=== PATIENT | male | born 1950 | race Caucasian/White ===

== ENCOUNTER 2021-02-10 11:53 | Inpatient (IN) ==
[2021-02-10] MEDS ORDERED: SODIUM CHLORIDE 0.9% 500 ML IV STA (14:55)
--- NOTE | 2021-02-10 15:03 | Emergency Department Note ---
Impression & Plan Tick-borne disease, Abnormal LFTs, Thrombocytopenia, MARIANA (acute kidney injury), Hyponatremia ED Provider Note NAME: CASSIE ANDRADE AGE: 70 SEX: M : 1950 ARRIVES VIA: Walk-In INFORMANT: Patient, ED PROVIDER(S): Venkat Davey DO CHIEF COMPLAINT: Abdominal pain HPI: The patient is a 70-year-old male who presented to the emergency department for an evaluation of abdominal pain. The patient describes lower abdominal pain which is associated with fever. The patient noticed the symptoms since last week. His significant other was also sick at the same time however the patient's significant other symptoms have improved since that time. The patient called the [place] where he is normally seen and was sent to the emergency department for possible food poisoning. He has had no rectal bleeding. He notices no black stool. He denies having any chest pain or cough. He denies having any headache or neck stiffness. He has noticed fever and chills. He has been taking Tylenol for his symptoms with good relief of his fever. The patient notices mild abdominal pain and nausea. ROS: See above HPI for pertinent positives & negatives. A total of 10 systems reviewed and were otherwise negative. PAST MEDICAL HISTORY: See Below PAST SURGICAL HISTORY: See Below FAMILY HISTORY: See Below SOCIAL HISTORY: See Below HOME MEDICATIONS: See Below ALLERGIES: See Below VITALS: See Below PHYSICAL EXAMINATION: GENERAL: Patient is awake alert in no acute distress patient is resting comfortably and showing no signs of anxiety EYES: The conjunctivae are clear. The pupils are round and reactive. EARS, NOSE, MOUTH AND THROAT: The nose is without any evidence of any deformity. NECK: The neck is nontender and supple. RESPIRATORY: Normal respiratory effort is noted there is no evidence of wheezing rhonchi or rales CARDIOVASCULAR: Regular rate and rhythm noted there no murmurs rubs or gallops normal S1 normal S2. GASTROINTESTINAL: The abdomen is soft and mildly distended. There is lower abdominal tenderness to palpation but no guarding rigidity. MUSCULOSKELETAL/EXTREMITIES: There is no evidence of gross deformity full range of motion is noted in the hips and shoulders. SKIN: There is no obvious evidence of any rash. There are no petechiae, pallor or cyanosis noted. NEUROLOGIC: Patient is awake alert and oriented x3 strength is symmetric patellar reflexes are 2+ bilaterally MEDICAL DECISION MAKING: The patient is a 70-year-old male who presented to the emergency department for an evaluation of abdominal pain and fever. The patient was sent by his primary care physician for an evaluation. The patient did not have a fever in the emergency department but he was found to have significant laboratory abnormalities including abnormal sodium potassium and an elevation in his creatinine. He also had elevation in his liver function studies as well as thrombocytopenia. [place] is possible this represents a tickborne illness. I discussed the patient's laboratory and radiographic studies with him. I discussed the patient's condition with the on-call [facility] hospitalist group. They have agreed to evaluate the patient in the emergency department for further management and disposition. The patient was treated with IV fluids and IV antibiotics. Triage Nursing notes reviewed. Prior medical records reviewed Vital Signs: reviewed and remarkable for elevated blood pressure. Differential diagnosis: Viral syndrome, otitis, pharyngitis, pneumonia, influenza, meningitis, urinary tract infection, sepsis, bacteremia, as well as other pathologies. ER treatment provided: See below Diagnostics interpreted by me: ECG: EKG was obtained in the emergency department. My interpretation is sinus rhythm at 96 bpm. PACs were noted. Nonspecific interventricular conduction del ay was appreciated. No previous tracing was available. Cardiac Monitoring: An order was placed for continuous cardiac monitoring. The monitor shows a rate of 80 bpm with sinus rhythm. Laboratory studies: As stated above and show below. Imaging studies: See below Consultation(s): Dr. Red was notified about the patient. They will evaluate the patient in the emergency department for further management and disposition. Past Med/Surg History Medical History History of gout Social History Smoking Status: Former smoker Tobacco Type: Cigarettes Second Hand Exposure: No; Do You Dip or Chew Tobacco: No; Tobacco Cessation Education Requested by Patient: No Hx Alcohol Use: Yes Alcohol type: beer Hx Substance Use: No Preferred Language: Italian Communication Ability: Effective Spray Maker Required: No Beliefs That Will Affect Care: None Current Living Situation: Spouse Other Information That Helps Us Care for You: No Feels Safe at Home: Yes Safety Concerns: Feels Safe At This Time Assistive Devices: None Allergies Allergies Allergy/AdvReac Type Severity Reaction Status Date / Time No Known Allergies Allergy Unverified 02/10/21 15:52 Home Meds Home Medications Medication Instructions Recorded Confirmed [id number] 1 tab PO QAM 02/10/21 02/10/21 [Multivitamin 50 Plus] sodium chloride [[place] Nasal Mist] 1 spray INTRANASAL HS 02/10/21 02/10/21 Results & Data (ED) Vital Signs Vital Signs - 24 hr 02/10/21 16:01 02/10/21 16:31 02/10/21 17:01 Temperature Temperature Source Pulse Rate 91 H 96 H 93 H Pulse Rate from SpO2 Sensor 90 89 84 Respiratory Rate 20 19 18 Blood Pressure 161/76 H 158/73 H 166/73 H Blood Pressure Mean 104 101 104 Pulse Oximetry 97 97 99 Oxygen Delivery Method Room Air Room Air Room Air 02/10/21 17:31 02/10/21 18:01 02/10/21 18:02 Temperature Temperature Source Pulse Rate 101 H 98 H 98 H Pulse Rate from SpO2 Sensor Respiratory Rate 22 16 17 Blood Pressure 176/78 H 168/96 H Blood Pressure Mean 110 120 Pulse Oximetry Oxygen Delivery Method 02/10/21 18:30 02/10/21 18:31 02/10/21 19:00 Temperature Temperature Source Pulse Rate 99 H 104 H Pulse Rate from SpO2 Sensor Respiratory Rate 14 14 20 Blood Pressure 141/67 H Blood Pressure Mean 91 Pulse Oximetry Oxygen Delivery Method 02/10/21 19:01 02/10/21 19:31 02/10/21 20:01 Temperature Temperature Source Pulse Rate 99 H 104 H Pulse Rate from SpO2 Sensor Respiratory Rate 20 15 24 Blood Pressure 159/67 H 151/64 H 143/85 H Blood Pressure Mean 97 93 104 Pulse Oximetry Oxygen Delivery Method 02/10/21 20:03 Temperature 37.3 C Temperature Source Oral Pulse Rate Pulse Rate from SpO2 Sensor Respiratory Rate Blood Pressure Blood Pressure Mean Pulse Oximetry Oxygen Delivery Method Home Medications Current Medication List: was personally reviewed by me Laboratory Data Attestation: I reviewed the patient's lab results. Result diagrams: 02/11/21 08:58 02/11/21 08:58 Lab Results 02/10/21 02/10/21 02/10/21 Range/Units 15:05 15:05 15:05 WBC 5.31 (4.8-10.8) K/uL RBC 4.38 L (4.7-6.1) M/uL Hgb 14.2 (14.0-18.0) g/dL Hct 39.6 L (42-52) % MCV 90.4 (80-100) fL MCH 32.4 (25-34) pg MCHC 35.9 (32-36) g/dL RDW Std Deviation 43.9 (36.4-46.3) fL RDW Coeff of Nallely 13.1 (11.5-14.5) % Plt Count 66 L (130-400) K/uL MPV 11.8 H (7.4-10.4) fL Immature Gran % (Auto) 0.4 % Neut % (Auto) 70.9 % Lymph % (Auto) 23.4 % Vance % (Auto) 3.2 % Eos % (Auto) 0.2 % Baso % (Auto) 1.9 % Neut # (Auto) 3.77 (1.4-6.5) K/uL Lymph # (Auto) 1.24 (1.2-3.4) K/uL Vance # (Auto) 0.17 (0.11-0.59) K/uL Eos # (Auto) 0.01 (0-0.5) K/uL Baso # (Auto) 0.10 (0-0.2) K/uL Immature Gran # (Auto) 0.02 (0.00-0.02) K/uL Blood Smear Review Platelet Estimate Decreased L (Normal) ESR 41 H (0-20) mm/hr Sodium 130 L (136-145) mmol/L Potassium 3.2 L (3.5-5.1) mmol/L Chloride 96 L (98-107) mmol/L Carbon Dioxide 24 (21-32) mmol/L Anion Gap 9.0 (3-11) BUN 31 H (7-18) mg/dl Creatinine 2.06 H (0.6-1.4) mg/dl Est Cr Clr Drug Dosing 32.4 ml/min Est GFR ( Amer) 36.2 ml/min Est GFR (Non-Af Amer) 31.2 ml/min BUN/Creatinine Ratio 14.9 (10-20) Glucose 110 H (70-99) mg/dl Calcium 9.0 (8.5-10.1) mg/dl Total Bilirubin 2.9 H (0.2-1) mg/dl AST 139 H (15-37) U/L ALT 119 H (12-78) U/L Alkaline Phosphatase 204 H (45-117) U/L Troponin I (0-0.045) ng/ml Total Protein 7.7 (6.4-8.2) gm/dl Albumin 3.2 L (3.4-5.0) gm/dl Globulin 4.5 H (2.5-4.0) gm/dl Albumin/Globulin Ratio 0.7 L (0.9-2) Lipase 569 H (73-393) U/L Procalcitonin (0-0.5) ng/ml Urine Color Urine Appearance (Clear) Urine pH (4.5-7.5) Ur Specific [place] (1.000-1.030) Urine Protein (Negative) Urine Glucose (UA) (Negative) Urine Ketones (Negative) Urine Blood (Negative) Urine Nitrite (Negative) Urine Bilirubin (Negative) Urine Urobilinogen (Negative) Ur Leukocyte Esterase (Negative) Urine WBC (Auto) (0-5) /hpf Urine RBC (Auto) (0-4) /hpf U Hyaline Cast (Auto) (0-5) /lpf U Epithel Cells (Auto) (0-5) /lpf Urine Bacteria (Auto) (Negative) Urine Yeast Anaplasma Smear See Comment Lyme Disease IgG Ab (Negative) Lyme Disease IgM Ab (Negative) COVID-19 Eval Order SARS-CoV-2, RNA, NAAT (NEGATIVE) 02/10/21 02/10/21 02/10/21 Range/Units 15:05 15:05 15:12 WBC (4.8-10.8) K/uL RBC (4.7-6.1) M/uL Hgb (14.0-18.0) g/dL Hct (42-52) % MCV (80-100) fL MCH (25-34) pg MCHC (32-36) g/dL RDW Std Deviation (36.4-46.3) fL RDW Coeff of Nallely (11.5-14.5) % Plt Count (130-400) K/uL MPV (7.4-10.4) fL Immature Gran % (Auto) % Neut % (Auto) % Lymph % (Auto) % Vance % (Auto) % Eos % (Auto) % Baso % (Auto) % Neut # (Auto) (1.4-6.5) K/uL Lymph # (Auto) (1.2-3.4) K/uL Vance # (Auto) (0.11-0.59) K/uL Eos # (Auto) (0-0.5) K/uL Baso # (Auto) (0-0.2) K/uL Immature Gran # (Auto) (0.00-0.02) K/uL Blood Smear Review Platelet Estimate (Normal) ESR (0-20) mm/hr Sodium (136-145) mmol/L Potassium (3.5-5.1) mmol/L Chloride (98-107) mmol/L Carbon Dioxide (21-32) mmol/L Anion Gap (3-11) BUN (7-18) mg/dl Creatinine (0.6-1.4) mg/dl Est Cr Clr Drug Dosing ml/min Est GFR ( Amer) ml/min Est GFR (Non-Af Amer) ml/min BUN/Creatinine Ratio (10-20) Glucose (70-99) mg/dl Calcium (8.5-10.1) mg/dl Total Bilirubin (0.2-1) mg/dl AST (15-37) U/L ALT (12-78) U/L Alkaline Phosphatase (45-117) U/L Troponin I < 0.015 (0-0.045) ng/ml Total Protein (6.4-8.2) gm/dl Albumin (3.4-5.0) gm/dl Globulin (2.5-4.0) gm/dl Albumin/Globulin Ratio (0.9-2) Lipase (73-393) U/L Procalcitonin 4.95 H (0-0.5) ng/ml Urine Color Urine Appearance (Clear) Urine pH (4.5-7.5) Ur Specific [place] (1.000-1.030) Urine Protein (Negative) Urine Glucose (UA) (Negative) Urine Ketones (Negative) Urine Blood (Negative) Urine Nitrite (Negative) Urine Bilirubin (Negative) Urine Urobilinogen (Negative) Ur Leukocyte Esterase (Negative) Urine WBC (Auto) (0-5) /hpf Urine RBC (Auto) (0-4) /hpf U Hyaline Cast (Auto) (0-5) /lpf U Epithel Cells (Auto) (0-5) /lpf Urine Bacteria (Auto) (Negative) Urine Yeast Anaplasma Smear Lyme Disease IgG Ab Negative (Negative) Lyme Disease IgM Ab Positive A (Negative) COVID[facility]19 [facility] SARS-CoV-2, RNA, NAAT (NEGATIVE) 02/10/21 02/10/21 Range/Units 15:12 16:58 WBC (4.8-10.8) K/uL RBC (4.7-6.1) M/uL Hgb (14.0-18.0) g/dL Hct (42-52) % MCV (80-100) fL MCH (25-34) pg MCHC (32-36) g/dL RDW Std Deviation (36.4-46.3) fL RDW Coeff of Nallely (11.5-14.5) % Plt Count (130-400) K/uL MPV (7.4-10.4) fL Immature Gran % (Auto) % Neut % (Auto) % Lymph % (Auto) % Vance % (Auto) % Eos % (Auto) % Baso % (Auto) % Neut # (Auto) (1.4-6.5) K/uL Lymph # (Auto) (1.2-3.4) K/uL Vance # (Auto) (0.11-0.59) K/uL Eos # (Auto) (0-0.5) K/uL Baso # (Auto) (0-0.2) K/uL Immature Gran # (Auto) (0.00-0.02) K/uL Blood Smear Review Platelet Estimate (Normal) ESR (0-20) mm/hr Sodium (136-145) mmol/L Potassium (3.5-5.1) mmol/L Chloride (98-107) mmol/L Carbon Dioxide (21-32) mmol/L Anion Gap (3-11) BUN (7-18) mg/dl Creatinine (0.6-1.4) mg/dl Est Cr Clr Drug Dosing ml/min Est GFR ( Amer) ml/min Est GFR (Non-Af Amer) ml/min BUN/Creatinine Ratio (10-20) Glucose (70-99) mg/dl Calcium (8.5-10.1) mg/dl Total Bilirubin (0.2-1) mg/dl AST (15-37) U/L ALT (12-78) U/L Alkaline Phosphatase (45-117) U/L Troponin I (0-0.045) ng/ml Total Protein (6.4-8.2) gm/dl Albumin (3.4-5.0) gm/dl Globulin (2.5-4.0) gm/dl Albumin/Globulin Ratio (0.9-2) Lipase (73-393) U/L Procalcitonin (0-0.5) ng/ml Urine Color Dark Yellow Urine Appearance Cloudy A (Clear) Urine pH 5.5 (4.5-7.5) Ur Specific [place] 1.018 (1.000-1.030) Urine Protein 2+ H (Negative) Urine Glucose (UA) Negative (Negative) Urine Ketones Trace H (Negative) Urine Blood Trace H (Negative) Urine Nitrite Negative (Negative) Urine Bilirubin 1+ H (Negative) Urine Urobilinogen Negative (Negative) Ur Leukocyte Esterase Trace H (Negative) Urine WBC (Auto) 10-30 H (0-5) /hpf Urine RBC (Auto) 5-10 H (0-4) /hpf U Hyaline Cast (Auto) 1-5 (0-5) /lpf U Epithel Cells (Auto) >30 H (0-5) /lpf Urine Bacteria (Auto) Negative (Negative) Urine Yeast Not Reportable Anaplasma Smear Lyme Disease IgG Ab (Negative) Lyme Disease IgM Ab (Negative) COVID-19 Eval Order SARS-CoV-2, RNA, NAAT NEGATIVE (NEGATIVE) Administered Medications Acetaminophen (Acetaminophen 325 Mg Tab) 325 mg PO Q4H PRN PRN Reason: fever or pain Stop: 03/13/21 01:05 Last Admin: 02/11/21 03:30 Dose: 325 mg Documented by: [id number] Enoxaparin Sodium (Enoxaparin Inj 40 Mg/0.4 Ml Syr) 40 mg SQ Q24H ARLETTE Stop: 03/13/21 08:59 Last Admin: 02/11/21 08:06 Dose: 40 mg Documented by: [id number] Doxycycline Hyclate 100 mg/ (Dextrose) 110 mls @ 50 mls/hr IV Q12H ARLETTE Stop: 02/25/21 05:59 Last Infusion: 02/11/21 08:05 Dose: 0 mls/hr Documented by: [id number] Admin: 02/11/21 06:02 Dose: 50 mls/hr Documented by: [id number] Discontinued Medications Doxycycline Hyclate (Doxycycline Hyclate 100 Mg Cap) 100 mg PO NOW STA Stop: 02/10/21 17:24 Last Admin: 02/10/21 17:30 Dose: 100 mg Documented by: [id number] Sodium Chloride (Nss) 500 mls @ 999 mls/hr IV .Q31M STA Stop: 02/10/21 15:25 Last Infusion: 02/10/21 15:39 Dose: 0 mls/hr Documented by: [id number] Admin: 02/10/21 15:08 Dose: 999 mls/hr Documented by: [id number] Sodium Chloride (Nss 1000ml) 500 mls @ 999 mls/hr IV .Q31M ONE Stop: 02/10/21 16:27 Last Infusion: 02/10/21 16:34 Dose: 0 mls/hr Documented by: [id number] Admin: 02/10/21 16:03 Dose: 999 mls/hr Documented by: [id number] Ceftriaxone Sodium (Rocephin) 1,000 mg in 50 mls @ 100 mls/hr IV NOW STA Stop: 02/10/21 17:21 Last Infusion: 02/10/21 17:36 Dose: 0 mls/hr Documented by: [id number] Admin: 02/10/21 17:06 Dose: 100 mls/hr Documented by: [id number] Potassium Chloride/Sodium Chloride (Normal Saline W/20 Meq Kcl) 20 meq in 1,000 mls @ 125 mls/hr IV .Q8H ARLETTE Stop: 02/11/21 14:59 Last Admin: 02/11/21 08:01 Dose: 125 mls/hr Documented by: [id number] Infusion: 02/11/21 07:36 Dose: 0 mls/hr Documented by: [id number] Admin: 02/10/21 23:29 Dose: 125 mls/hr Documented by: [id number] Piperacillin Sod/Tazobactam (Sod 4.5 gm/ Dextrose) 120 mls @ 200 mls/hr IV 2315 ONE; Protocol Stop: 02/10/21 23:50 Last Infusion: 02/11/21 00:23 Dose: 0 mls/hr Documented by: [id number] Admin: 02/10/21 23:42 Dose: 200 mls/hr Documented by: [id number] Piperacillin Sod/Tazobactam (Sod 3.375 gm/ Dextrose) 115 mls @ 28.75 mls/hr IV Q8H [facility]; Protocol Stop: 02/21/21 03:59 Last Infusion: 02/11/21 14:34 Dose: 0 mls/hr Documented by: [id number] Admin: 02/11/21 11:21 Dose: 28.8 mls/hr Documented by: [id number] Infusion: 02/11/21 07:36 Dose: 0 mls/hr Documented by: [id number] Admin: 02/11/21 03:30 Dose: 28.8 mls/hr Documented by: [id number] Potassium Chloride (Potassium Chloride Crtab 20 Meq Tabcr) 40 meq PO NOW STA Stop: 02/10/21 20:11 Last Admin: 02/10/21 21:17 Dose: 40 meq Documented by: [id number] Imaging Data Radiologist's Impression: Chest X-Ray 02/10/21 14:55 SINGLE VIEW CHEST CLINICAL HISTORY: Fever. Diarrhea. Generalized weakness. FINDINGS: 2 AP, portable, upright chest radiographs are obtained. No prior studies are available for comparison at the time of dictation. The heart is mildly enlarged. The pulmonary vasculature is noncongested. No airspace consolidation or large pleural effusion is identified. No pneumothorax is seen. The skeletal structures are osteopenic. The bony thorax is grossly intact. Degenerative change is seen throughout the thoracic spine. A metallic foreign body projects over the left axilla. IMPRESSION: No acute cardiopulmonary abnormality. ACT 112: Negative or not required by law. Electronically signed by: Charles Gonzalez M.D. 02/10/2021 3:22 PM Abdomen/Pelvis CT 02/10/21 15:57 CT SCAN OF THE ABDOMEN AND PELVIS WITHOUT IV CONTRAST CLINICAL HISTORY: Fever. Generalized abdominal pain. COMPARISON STUDY: No priors. TECHNIQUE: CT scan of the abdomen and pelvis is performed from the lung bases to the proximal femora. Images are reviewed in the axial, sagittal, and coronal planes. IV contrast was not administered for this examination. Note that the examination is suboptimal without oral and IV contrast. A dose lowering technique was utilized adhering to the principles of ALARA. CT DOSE: 413.97 mGy.cm FINDINGS: Lung bases: The heart is normal in size and without pericardial effusion. Fat- containing Bochdalek hernias are present at both lung bases. The lung bases are otherwise clear. There is a tiny hiatal hernia. Liver: The unenhanced liver is normal in size, contour, and attenuation. There is no intrahepatic biliary ductal dilatation. Gallbladder: There are calcified gallstones with no CT evidence of acute lucrecia cystitis. Spleen: Normal in size and attenuation. There are calcified splenic granulomas. Pancreas: Unremarkable. Adrenal glands: Unremarkable. Kidneys: The unenhanced kidneys are normal in size and without hydronephrosis. There are no renal calculi identified. There is no evidence of contour deforming renal mass lesion. Abdominal vasculature: The abdominal aorta is normal in course and caliber noting moderate atherosclerotic calcification. Bowel: There are mildly distended and fluid-filled loops of proximal small bowel with scattered air-fluid levels. These measure up to 2.6 cm in diameter. The distal small bowel is relatively decompressed, with no discrete transition point identified. There is no pneumatosis intestinalis or portal venous gas. No interloop fluid is seen. Mild/moderate fecal retention is seen throughout the colon. The appendix is well-visualized and normal Peritoneum: There is no intraperitoneal free air or abdominal ascites. Lymphadenopathy: None. Pelvic viscera: The prostate gland is mildly enlarged and heterogeneous noting median lobe hypertrophy. The bladder is distended but otherwise normal in appearance. There is evidence of previous bilateral inguinal herniorrhaphy. Skeletal structures: The skeletal structures are osteopenic. Mild to moderate lumbosacral spondylosis is observed. No lytic or blastic lesions are seen. IMPRESSION: 1. Significantly suboptimal examination without oral and IV contrast. 2. There are mildly distended and fluid-filled loops of proximal small bowel with scattered air-fluid levels. The distal small bowel is relatively decompressed and no discrete transition point is identified. This may represent a nonspecific enteritis. A low-grade or developing bowel obstruction is not excluded and clinical correlation will be required. 3. Cholelithiasis. 4. No bowel obstruction. 5. Additional findings as above. ACT 112: Negative or not required by law. Electronically signed by: Charles Gonzalez M.D. 02/10/2021 4:30 PM Discharge Plan Visit Data Chief Complaint: Illness Stated Complaint: NAUSEA,DIARRHEA,FEVER,SENT [facility] FOR [facility]OD POISONING ED Provider: Venkat Davey Discharge Problem: Tick-borne disease, Abnormal LFTs, Thrombocytopenia, MARIANA (acute kidney injury), Hyponatremia Patient Disposition: Admitted As Inpatient Condition: Good Discharge Instructions Interventions: ED Discharge Assessment Last Done: 02/10/21 21:51
--- NOTE | 2021-02-10 15:23 | XRay Report ---
SINGLE VIEW CHEST CLINICAL HISTORY: Fever. Diarrhea. Generalized weakness. FINDINGS: 2 AP, portable, upright chest radiographs are obtained. No prior studies are available for comparison at the time of dictation. The heart is mildly enlarged. The pulmonary vasculature is nonc ongested. No airspace consolidation or large pleural effusion is identified. No pneumothorax is seen. The skeletal structures are osteopenic. The bony thorax is grossly intact. Degenerative change is se en throughout the thoracic spine. A metallic foreign body projects over the left axilla. IMPRESSION: No acute cardiopulmonary abnormality. ACT 112: Negative or not required by law. Electronically signed by: Charles Gonzalez M.D. 02/10/2021 3:22 PM
[2021-02-10 15:44] LABS: Albumin Level 3.2 gm/dl (3.4-5.0); BUN Creatinine Ratio 14.9 (10-20); Creatinine Clr Calc Pharmacy 32.4 ml/min; Est GFR (African American) 36.2 ml/min; Est GFR (Non-African American) 31.2 ml/min; Potassium 3.2 mmol/L (3.5-5.1)
[2021-02-10 15:47] LABS: Albumin Globulin Ratio 0.7 (0.9-2); Bilirubin,Total 2.9 mg/dl (0.2-1); Globulin 4.5 gm/dl (2.5-4.0); Total Protein 7.7 gm/dl (6.4-8.2)
[2021-02-10] MEDS ORDERED: SODIUM CHLORIDE 0.9% 1000ML 500 ML IV ONE (15:57)
[2021-02-10 16:13] LABS: Hematocrit (blood only) 39.6 % (42-52); Hemoglobin 14.2 g/dL (14.0-18.0); Mean Corpuscular Hemoglobin 32.4 pg (25-34); Mean Corpuscular Hgb Conc 35.9 g/dL (32-36); Mean Corpuscular Volume 90.4 fL (80-100); Mean Platelet Volume 11.8 fL (7.4-10.4); Platelet Count 66 K/uL (130-400); RDW Coefficient of Variation 13.1 % (11.5-14.5); RDW Standard Deviation 43.9 fL (36.4-46.3); Red Blood Count 4.38 M/uL (4.7-6.1); White Blood Count 5.31 K/uL (4.8-10.8)
[2021-02-10 16:18] LABS: Procalcitonin 4.95 ng/ml (0-0.5)
[2021-02-10 16:19] LABS: Basophils % (auto) 1.9 %; Eosinophils # (auto) 0.01 K/uL (0-0.5); Eosinophils % (auto) 0.2 %; Immature Granulocytes # (auto) 0.02 K/uL (0.00-0.02); Immature Granulocytes % (auto) 0.4 %; Lymphocytes # (auto) 1.24 K/uL (1.2-3.4); Lymphocytes % (auto) 23.4 %; Monocytes # (auto) 0.17 K/uL (0.11-0.59); Monocytes % (auto) 3.2 %; Neutrophils # (auto) 3.77 K/uL (1.4-6.5); Neutrophils % (auto) 70.9 %
[2021-02-10 16:20] LABS: Platelet Estimate Decreased (Normal)
[2021-02-10 16:24] LABS: Lyme Ab IgG w/WB Rflx Negative (Negative)
--- NOTE | 2021-02-10 16:31 | CT Scan Report ---
CT SCAN OF THE ABDOMEN AND PELVIS WITHOUT IV CONTRAST CLINICAL HISTORY: Fever. Generalized abdominal pain. COMPARISON STUDY: No priors. TECHNIQUE: CT scan of the abdomen and pelvis is performed from the lung bases to the proximal femora. Images are reviewed in the axial, sagittal, and coronal planes. IV contrast was not administered for this examination. Note that the examination is suboptimal without oral and IV contrast. A dose lower ing technique was utilized adhering to the principles of ALARA. CT DOSE: 413.97 mGy.cm FINDINGS: Lung bases: The heart is normal in size and without pericardial effusion. Fat-containing Bochdalek he rnias are present at both lung bases. The lung bases are otherwise clear. There is a tiny hiatal el ia. Liver: The unenhanced liver is normal in size, contour, and attenuation. There is no intrahepatic rey iary ductal dilatation. Gallbladder: There are calcified gallstones with no CT evidence of acute cholecystitis. Spleen: Normal in size and attenuation. There are calcified splenic granulomas. Pancreas: Unremarkable. Adrenal glands: Unremarkable. Kidneys: The unenhanced kidneys are normal in size and without hydronephrosis. There are no renal yogi culi identified. There is no evidence of contour deforming renal mass lesion. Abdominal vasculature: The abdominal aorta is normal in course and caliber noting moderate atheroscle rotic calcification. Bowel: There are mildly distended and fluid-filled loops of proximal small bowel with scattered air-f luid levels. These measure up to 2.6 cm in diameter. The distal small bowel is relatively decompresse d, with no discrete transition point identified. There is no pneumatosis intestinalis or portal venou s gas. No interloop fluid is seen. Mild/moderate fecal retention is seen throughout the colon. The ap pendix is well-visualized and normal Peritoneum: There is no intraperitoneal free air or abdominal ascites. Lymphadenopathy: None. Pelvic viscera: The prostate gland is mildly enlarged and heterogeneous noting median lobe hypertroph y. The bladder is distended but otherwise normal in appearance. There is evidence of previous bilater al inguinal herniorrhaphy. Skeletal structures: The skeletal structures are osteopenic. Mild to moderate lumbosacral spondylosis is observed. No lytic or blastic lesions are seen. IMPRESSION: 1. Significantly suboptimal examination without oral and IV contrast. 2. There are mildly distended and fluid-filled loops of proximal small bowel with scattered air-fluid levels. The distal small bowel is relatively decompressed and no discrete transition point is identi fied. This may represent a nonspecific enteritis. A low-grade or developing bowel obstruction is not excluded and clinical correlation will be required. 3. Cholelithiasis. 4. No bowel obstruction. 5. Additional findings as above. ACT 112: Negative or not required by law. Electronically signed by: Charles Gonzalez M.D. 02/10/2021 4:30 PM
[2021-02-10 16:39] LABS: Lyme Ab IgM w/WB Rflx Positive (Negative)
[2021-02-10] MEDS ORDERED: cefTRIAXone SODIUM 1,000 MG/50 ML BAG IV STA (16:52)
[2021-02-10 17:23] LABS: Appearance Urine Cloudy (Clear); Bacteria Urine Automated Negative (Negative); Blood Urine Trace (Negative); Color Urine Dark Yellow; Epithelial Cell Urine Auto >30 /lpf (0-5); Glucose Urine UA Negative (Negative); Ketones Urine Trace (Negative); Leukocyte Esterase Urine Trace (Negative); Nitrite Urine Negative (Negative); Protein Urine 2+ (Negative); Specific Gravity Urine 1.018 (1.000-1.030); Urobilinogen Urine Negative (Negative); pH Urine 5.5 (4.5-7.5)
[2021-02-10] MEDS ORDERED: DOXYCYCLINE HYCLATE 100 MG CAP PO STA (17:23)
[2021-02-10 17:34] LABS: Bilirubin Urine 1+ (Negative)
--- NOTE | 2021-02-10 19:52 | History & Physical Report ---
Date of Service February 10, 2021 Assessment & Plan (1) Abnormal LFTs: 70 yo M no significant PMHx [facility] for suspected Tick-borne illness with elevated LFTs thrombocytopenia, MARIANA; also with enteritis on CTAP. ? Tick-borne illness (Thrombocytopenia, elevated LFTs): - Presents with elevated LFTs, thrombocytopenia of unknown cause. - Lyme IgM positive (bands pending), Anaplasma smear preliminary negative with DNA pending. - Ehrlichia IgM and IgG, Babesia IgM and IgG ordered. - COVID 19 negative. - Procalcitonin and ESR elevated, differentials also include intraabdominal infection. Enteritis workup as below. - Repeat LFTs, procalcitonin in AM; if not improving pursue further intraabdominal imaging such as abdominal US. Enteritis: - One week of nausea, vomiting, diarrhea. - Endorses eating Cheng chicken the day he started having symptoms. - Note of recent [employer] chicken recall for Listeria. - Empiric coverage of intraabdominal sources with Zosyn. - Blood cultures collected. MARIANA: - Creatinine 2.06; no baseline to compare. - Patient does not endorse history of kidney dysfunction. - NSS at 125cc/hr x2 bags, clear liquid diet. - Repeat renal function labs in AM. Hyponatremia: - In ER with hyponatremia to 130; suspect from vomiting/diarrhea causing low vol ume. - Continue IVF x2 bags with clear liquid diet, repeat BMP AM. HTN: - Noted in ER to have BP 150-170s/70-90s. - No history of HTN per patient. - Will monitor while admitted, will likely need PCP follow up. Alcohol use: - Does endorse 2-3 beers nightly, however has not had any alcohol in over week, low likelihood of withdrawal symptoms. - Will monitor LFTs for improvement, suspect elevated is due to ongoing illness as opposed to alcohol use. Code Status: FULL CODE FEN: Clear liquid DVT ppx: Lovenox Dispo: Med/Tele (2) Thrombocytopenia: (3) MARIANA (acute kidney injury): (4) Tick-borne disease: (5) Enteritis: (6) Hypokalemia: (7) Hyponatremia: History of Present Illness Chief Complaint: nausea, vomiting, headache, fatigue Primary Care Provider: NO PCP 70 yo M no PMHx presents for 1 week of GI symptoms, fatigue, headache, and rigors. He reports that about a week ago he was eating a [employer] chicken libby and an hour later was experiencing nausea, vomiting, and diarrhea. This persisted for several days, and patient still reports some nausea and diarrhea in the last day but improved from onset. He also endorses intermittent shaking chills, with temperatures at home of 100 degrees F. He does not endorse SOB, chest pain, dizziness. He does endorse vague headache. Does not recall any recent tick bites but does live near [facility]. Does not smoke. Does drink 2-3 beers daily, but stopped around a week ago due to his symptoms. No complaints of tremors, hallucinations, anxiety. Allergies Allergy/AdvReac Type Severity Reaction Status Date / Time No Known Allergies Allergy Unverified 02/10/21 15:52 Home Medications Medication Instructions Recorded Confirmed Type iftvxnaijedk-uywxctet-phqqpy 1 tab PO QAM 02/10/21 02/10/21 History [Multivitamin 50 Plus] sodium chloride [[place] Nasal Mist] 1 spray INTRANASAL HS 02/10/21 02/10/21 History Past Med/Surg History Medical History History of gout Social History Smoking Status: Former smoker Tobacco Type: Cigarettes Second Hand Exposure: No; Do You Dip or Chew Tobacco: No; Tobacco Cessation Education Requested by Patient: No Hx Alcohol Use: Yes Alcohol type: beer Hx Substance Use: No Preferred Language: Polish Communication Ability: Effective [employer] Required: No Beliefs That Will Affect Care: None Current Living Situation: Spouse Other Information That Helps Us Care for You: No Feels Safe at Home: Yes Safety Concerns: Feels Safe At This Time Assistive Devices: None Review of Systems Review of Systems: All systems reviewed & are unremarkable except as noted in HPI & below Constitutional: + fatigue and + malaise; no fever and no chills Respiratory: no cough and no dyspnea Cardiovascular: no chest pain, no palpitations and no edema Gastrointestinal: + nausea and + diarrhea/loose stools; no abdominal pain and no constipation Neurologic: + headache(s) Physical Exam Constitutional: WD/WN, vitals as above Eyes: PERRL, conjunctivae normal, anicteric sclerae ENMT: external ear and nose normal, oropharynx normal Neck: normal visual inspection Respiratory: normal respiratory effort, lungs clear to auscultation Cardiovascular: Heart Sounds: no murmur Extremities: no edema HR regularly irregular Gastrointestinal (Abdomen): normal bowel sounds, soft, nontender, no hepatosplenomegaly Musculoskeletal: no cyanosis or clubbing, extremities motor strength 5/5 Skin: no rashes, warm and dry Neurologic: AAOx3, normal speech. PERRLA, EOMI, no nystagmus. Bilateral UE, LE, and face without sensory or motor deficits. Psychiatric: A+Ox3, euthymic affect Results & Data Results & Data ([facility]) Vital Signs (Past 12 Hours) Vital Signs Temp Pulse Pulse Resp BP BP Pulse Ox 02/10/21 19:31 99 H 15 151/64 H 02/10/21 19:01 20 159/67 H 02/10/21 19:00 20 02/10/21 18:31 104 H 14 141/67 H 02/10/21 18:30 99 H 14 02/10/21 18:02 98 H 17 02/10/21 18:01 98 H 16 168/96 H 02/10/21 17:31 101 H 22 176/78 H 02/10/21 17:01 93 H 18 166/73 H 99 02/10/21 16:31 96 H 19 158/73 H 97 02/10/21 16:01 91 H 20 161/76 H 97 02/10/21 15:31 99 H 23 158/73 H 97 02/10/21 15:01 93 H 17 177/78 H 99 02/10/21 14:57 37.2 C 102 H 22 181/95 H 95 02/10/21 12:09 36.9 C 87 18 157/84 H 100 Supervising Physician Co-Signing Physician Notes Patient seen and examined, chart reviewed, case discussed with Dr. Cornelius and I agree with her assessment and plan as above. Briefly, patient is a 70yo male with history of gout presenting with nausea, vomiting, diarrhea, weakness and fatigue as well as intermittent shaking chills and fever. Labs significant for deranged liver studies as well as thrombocytopenia, hyponatremia. On exam he is afebrile, hypertensive otherwise HD stable, NAD Skin - no petechiae, pallor or jaundice HEENT - NC/AT, PERRL, MMM, Neck supple Heart - +S1/S2, regularly irregular, no m/r/g Lungs - CTA Abd - +BS, soft, NT/ND Ext- warm, well perfused, no clubbing/cyanosis or edema Neuro - grossly normal Labs and images reviewed Assessment/Plan - 70yo male presenting with 1 week of nausea/vomiting/diarrhea as well as shaking chills and fever. Concern for possible tick-borne illness. Patient did eat a [employer] chicken libby - has been recent recall for Listeria - systemic Listeria in immunocompetent host would be very rare -Follow tick labs -Empiric Doxycycline -Remainder of plan as above Resident Activity Tracking Resident Involvement: Resident Care Provided Care Provided: Adult Hospital Medicine
[2021-02-10] MEDS ORDERED: POTASSIUM CHLORIDE 20 MEQ in SODIUM CHLORIDE 0.9% 1000ML 1,000 ML IV SCH (20:08)
[2021-02-10] MEDS ORDERED: PIPERACILL/TAZOBAC CONSULT ACTIVE PRN (20:08)
[2021-02-10] MEDS ORDERED: ONDANSETRON INJ 2 MG/ML 2 ML VIAL IV PRN (20:08)
[2021-02-10] MEDS ORDERED: POTASSIUM CHLORIDE CRTAB 20 MEQ TABCR PO STA (20:10)
[2021-02-10] MEDS ORDERED: PIPERACILLIN/TAZOBACTAM 3.375 GM in DEXTROSE 5% 100 ML IV SCH (20:15)
[2021-02-10] MEDS ORDERED: DOXYCYCLINE HYCLATE 100 MG in DEXTROSE 5% 100 ML IV SCH (20:15)
[2021-02-10] MEDS ORDERED: PIPERACILLIN/TAZOBACTAM 4.5 GM in DEXTROSE 5% 100 ML IV ONE (23:15)
[2021-02-10] MEDS: NSS + 20MEQ KCL 20 MEQ/1,000 ML BAG IV SCH (23:29)
[2021-02-11] MEDS ORDERED: ACETAMINOPHEN 325 MG TAB PO PRN ×2 (01:06→03:07)
[2021-02-11] MEDS: PIPERACILLIN/TAZOBACTAM 3.375 GM in DEXTROSE 5% 100 ML IV SCH ×2 (03:30→11:21)
[2021-02-11] MEDS: DOXYCYCLINE HYCLATE 100 MG in DEXTROSE 5% 100 ML IV SCH ×2 (06:02→17:44)
--- NOTE | 2021-02-11 06:40 | Electrocardiogram Report ---
Test Reason : Blood Pressure : / mmHG Vent. Rate : 096 BPM Atrial Rate : 096 BPM P-R Int : 146 ms QRS Dur : 108 ms QT Int : 364 ms P-R-T Axes : 018 -48 039 degrees QTc Int : 459 ms Sinus rhythm with Premature atrial complexes Incomplete right bundle branch block Left anterior fascicular block Abnormal ECG No previous ECGs available Confirmed by Edison Gutierrez ([id number]) on 02/11/2021 6:40:17 AM Referred By: REFERRED SELF Confirmed By:Edison Gutierrez
--- NOTE | 2021-02-11 07:54 | Hospitalist Progress Note ---
Date of Service February 11, 2021 Assessment & Plan (1) Abnormal LFTs: 70 yo M no significant PMHx [facility] for suspected Tick-borne illness with elevated LFTs thrombocytopenia, MARIANA; also with enteritis on CTAP. #Tick-borne illness (Thrombocytopenia, elevated LFTs): Presents with elevated LFTs, thrombocytopenia of unknown cause. Lyme IgM positive (bands pending), Anaplasma smear preliminary negative with DNA pending. Procalcitonin and ESR elevated, differentials also include intraabdominal infection. Enteritis workup as below. - Ehrlichia IgM and IgG, Babesia IgM and IgG ordered. - Doxycycline 100 mg BID Day 1 Enteritis: One week of nausea, vomiting, diarrhea. Endorses eating Cheng chicken the day he started having symptoms. Note of recent [employer] chicken recall for Listeria. - Empiric coverage of intraabdominal sources with Zosyn. - Blood cultures Pending MARIANA: - Creatinine 2.06; no baseline to compare. Patient does not endorse history of kidney dysfunction. - NSS at 125cc/hr x2 bags, clear liquid diet. - Repeat renal function labs in AM. Electrolyte derangements In ER with hyponatremia to 130; suspect from vomiting/diarrhea causing low volume. -Replete as indicated HTN: Noted in ER to have BP 150-170s/70-90s. No history of HTN per patient. - Will monitor while admitted, will likely need PCP follow up. Alcohol use: Does endorse 2-3 beers nightly, however has not had any alcohol in over week, low likelihood of withdrawal symptoms. - Will monitor LFTs for improvement, suspect elevated is due to ongoing illness as opposed to alcohol use. Code Status: FULL CODE FEN: Clear liquid DVT ppx: Lovenox Dispo: Med/Tele (2) Thrombocytopenia: (3) MARIANA (acute kidney injury): (4) Tick-borne disease: (5) Enteritis: (6) Hypokalemia: (7) Hyponatremia: Admission and Anticipated Discharge Date Admission Date: February 10, 2021 Results & Data Results & Data ([facility]) Vital Signs (Past 12 Hours) Vital Signs Temp Pulse Pulse Resp BP BP Pulse Ox 02/11/21 07:03 37.3 C 79 18 126/74 97 02/11/21 02:39 37 C 85 18 148/76 H 98 02/10/21 22:20 97 H 02/10/21 22:00 37.6 C H 82 20 143/79 H 99 02/10/21 21:31 95 H 17 160/78 H 95 02/10/21 21:01 91 H 19 161/77 H 02/10/21 20:30 101 H 22 02/10/21 20:03 37.3 C 02/10/21 20:01 104 H 24 143/85 H
[2021-02-11] MEDS: NSS + 20MEQ KCL 20 MEQ/1,000 ML BAG IV SCH (08:01)
[2021-02-11] MEDS: ENOXAPARIN INJ 40 MG/0.4 ML SYR SQ SCH (08:06)
--- NOTE | 2021-02-11 09:19 | Medical Student Progress Note ---
Date of Service February 11, 2021 Assessment & Plan (1) Abnormal LFTs: 70 yo M no significant PMHx [facility] for suspected Tick-borne illness with elevated LFTs, thrombocytopenia, and MARIANA. Tick-borne illness (Thrombocytopenia, elevated LFTs): Presents with elevated LFTs, thrombocytopenia. Lyme IgM positive (bands pending), Anaplasma smear preliminary negative with DNA pending. - Ehrlichia IgM and IgG, Babesia IgM and IgG ordered. - Doxycycline 100 mg BID begun 02/10 Enteritis, RESOLVED: - last episode of diarrhea 1 week ago. - Discontinued Zosyn - Blood cultures pending MARIANA: - Creatinine 2.08 today; no baseline to compare. Patient does not endorse history of kidney dysfunction. - IVF - Trend renal function labs for improvement with hydration Electrolyte derangements - hyponatremia to 130 yesterday, 133 today - hypokalemia to 3.2 yesterday, 3.3 today - likely from poor intake. - Should continue to improve with IVF Elevated bilirubin - Total 2.9 yesterday, improved to 1.8 today (direct 1.3) - Patient asymptomatic, but consider RUQ US if improvement does not continue with supportive care. HTN: Noted in ER to have BP 150-170s/70-90s. No history of HTN per patient. - Will monitor while admitted, will likely need PCP follow up. Alcohol use: Does endorse 2-3 beers nightly, however has not had any alcohol in over week, low likelihood of withdrawal symptoms. - Will monitor LFTs for improvement, suspect elevated is due to ongoing illness as opposed to alcohol use. Code Status: Full Code FEN: Regular DVT ppx: Lovenox Dispo: Med/Tele Admission and Anticipated Discharge Date Admission Date: February 10, 2021 Supervising Attestation I personally examined the patient and verified all cao points of history and exam, discussed case, and agree with decision making with Juana Shaikh MS4 feeling better overall. eating OK. no new complaints vitals noted nad heent nc at mmm breathing unlabored no accessory muscles good effort skin no rashes no pallor or icterus tick borne illness - presumably anaplasmosis given high prevalence and clinical picture/pattern - improving. continue empiric doxy. follow ARF (presumed - baseline creatinine unknown) - IV fluids, BMP in AM. hopefully home tomorrow with ongoing clinical improvement otherwise as above Subjective Feeling better this morning. Describes a week of fever, chills, malaise, and myalgia. Describes one episode of diarrhea about a week ago, but normal BM since then. Denies pale stool or blood in stool. Denies abdominal pain, nausea/ vomiting. Denies rash. [place] but did not notice a tick on him. Drinks 2-3 12oz beers daily, but last drink was over a week ago. Review of Systems Review of Systems: All systems reviewed & are unremarkable except as noted in HPI & below Physical Exam Physical Exam: GENERAL: nad HEENT: conjunctiva without injection b/l, oropharynx moist CHEST: cta bilaterally with no wheezes, rhonchi or rales, normal respiratory effort CARDIOVASCULAR: heart regular rate and rhythm, no murmurs, gallops or rubs, no lower extremity edema ABD:nontender to palpation, nondistended, normal active bowel sounds SKIN: no rashes or suspicious lesions noted NEURO: PERRLA, EOMI Results & Data ([facility]) Vital Signs (Past 12 Hours) Vital Signs Temp Pulse Pulse Resp BP BP Pulse Ox 02/11/21 07:03 37.3 C 79 18 126/74 97 02/11/21 02:39 37 C 85 18 148/76 H 98 02/10/21 22:20 97 H 02/10/21 22:00 37.6 C H 82 20 143/79 H 99 02/10/21 21:31 95 H 17 160/78 H 95
[2021-02-11 09:20] LABS: Hematocrit (blood only) 32.5 % (42-52); Hemoglobin 11.5 g/dL (14.0-18.0); Mean Corpuscular Hemoglobin 31.6 pg (25-34); Mean Corpuscular Hgb Conc 35.4 g/dL (32-36); Mean Corpuscular Volume 89.3 fL (80-100); RDW Coefficient of Variation 13.3 % (11.5-14.5); RDW Standard Deviation 43.9 fL (36.4-46.3); Red Blood Count 3.64 M/uL (4.7-6.1); White Blood Count 5.65 K/uL (4.8-10.8)
[2021-02-11 09:44] LABS: Albumin Level 2.3 gm/dl (3.4-5.0); BUN Creatinine Ratio 16.2 (10-20); Calcium 7.8 mg/dl (8.5-10.1); Creatinine Clr Calc Pharmacy 32.1 ml/min; Est GFR (African American) 35.8 ml/min; Est GFR (Non-African American) 30.9 ml/min; Potassium 3.3 mmol/L (3.5-5.1)
[2021-02-11 09:49] LABS: Basophils # (auto) 0.12 K/uL (0-0.2); Basophils % (auto) 2.1 %; Eosinophils # (auto) 0.03 K/uL (0-0.5); Eosinophils % (auto) 0.5 %; Immature Granulocytes # (auto) 0.02 K/uL (0.00-0.02); Immature Granulocytes % (auto) 0.4 %; Lymphocytes # (auto) 2.21 K/uL (1.2-3.4); Lymphocytes % (auto) 39.1 %; Mean Platelet Volume 11.9 fL (7.4-10.4); Monocytes # (auto) 0.33 K/uL (0.11-0.59); Monocytes % (auto) 5.8 %; Neutrophils # (auto) 2.94 K/uL (1.4-6.5); Neutrophils % (auto) 52.1 %; Platelet Count 70 K/uL (130-400)
[2021-02-11 09:56] LABS: Albumin Globulin Ratio 0.6 (0.9-2); Bilirubin,Total 1.8 mg/dl (0.2-1); Globulin 3.6 gm/dl (2.5-4.0); Total Protein 5.9 gm/dl (6.4-8.2)
[2021-02-11 10:50] LABS: Bilirubin Direct 1.3 mg/dl (0-0.2)
--- NOTE | 2021-02-11 15:47 | Billing Data ---
Date of Service February 11, 2021 Coding Level of Care Code 69424 Subseq Hosp Care Lvl 3
--- NOTE | 2021-02-11 19:24 | Billing Data ---
Date of Service February 10, 2021 Coding Level of Care Code 91774 Initial Inpt Care Lvl 2
[2021-02-12] MEDS: DOXYCYCLINE HYCLATE 100 MG in DEXTROSE 5% 100 ML IV SCH (05:27)
--- NOTE | 2021-02-12 06:25 | Electrocardiogram Report ---
Test Reason : Blood Pressure : / mmHG Vent. Rate : 077 BPM Atrial Rate : 077 BPM P-R Int : 144 ms QRS Dur : 114 ms QT Int : 420 ms P-R-T Axes : 015 -24 046 degrees QTc Int : 475 ms Normal sinus rhythm Incomplete right bundle branch block Borderline ECG When compared with ECG of 10-FEB-2021 16:04, Premature atrial complexes are no longer Present Confirmed by Edison Gutierrez ([id number]) on 02/12/2021 6:25:31 AM Referred By: REFERRED SELF Confirmed By:Edison Gutierrez
[2021-02-12] MEDS: ENOXAPARIN INJ 40 MG/0.4 ML SYR SQ SCH (07:41)
[2021-02-12 08:36] LABS: Hematocrit (blood only) 32.5 % (42-52); Hemoglobin 11.6 g/dL (14.0-18.0); Mean Corpuscular Hemoglobin 31.9 pg (25-34); Mean Corpuscular Hgb Conc 35.7 g/dL (32-36); Mean Corpuscular Volume 89.3 fL (80-100); Mean Platelet Volume 10.8 fL (7.4-10.4); Platelet Count 109 K/uL (130-400); RDW Coefficient of Variation 13.5 % (11.5-14.5); RDW Standard Deviation 44.9 fL (36.4-46.3); Red Blood Count 3.64 M/uL (4.7-6.1); White Blood Count 7.73 K/uL (4.8-10.8)
[2021-02-12 08:50] LABS: Albumin Globulin Ratio 0.7 (0.9-2); Albumin Level 2.4 gm/dl (3.4-5.0); BUN Creatinine Ratio 18.1 (10-20); Bilirubin,Total 1.3 mg/dl (0.2-1); Calcium 8.3 mg/dl (8.5-10.1); Creatinine Clr Calc Pharmacy 37.3 ml/min; Est GFR (African American) 42.9 ml/min; Globulin 3.5 gm/dl (2.5-4.0); Total Protein 5.9 gm/dl (6.4-8.2)
[2021-02-12 09:02] LABS: ALC (manual) 3.83 K/uL (1.2-3.4); ANC (manual) 3.36 K/uL (1.4-6.5); Eosinophils % (manual) 2.6 %; Lymphocytes # (manual) 1.41 K/uL (1.2-3.4); Lymphocytes % (manual) 18.3 %; Monocytes # (manual) 0.33 K/uL (0.11-0.59); Monocytes % (manual) 4.3 %; Neutrophils # (manual) 3.36 K/uL (1.4-6.5); Neutrophils % (manual) 43.5 %; Reactive Lymphocytes # (manual) 2.42 K/uL; Reactive Lymphocytes % (manual) 31.3 %
[2021-02-12 09:33] LABS: Potassium 3.3 mmol/L (3.5-5.1)
--- NOTE | 2021-02-12 12:40 | Med Student Discharge Summary ---
Date of Service February 12, 2021 Admission HPI Per Admitting Provider 70 yo M no PMHx presents for 1 week of GI symptoms, fatigue, headache, and rigors. He reports that about a week ago he was eating a [employer] chicken libby and an hour later was experiencing nausea, vomiting, and diarrhea. This persisted for several days, and patient still reports some nausea and diarrhea in the last day but improved from onset. He also endorses intermittent shaking chills, with temperatures at home of 100 degrees F. He does not endorse SOB, chest pain, dizziness. He does endorse vague headache. Does not recall any recent tick bites but does live near [facility]. Does not smoke. Does drink 2-3 beers daily, but stopped around a week ago due to his symptoms. No complaints of tremors, hallucinations, anxiety. Admission Exam (Per Admitting) Constitutional WD/WN, vitals as above Eyes PERRL, conjunctivae normal, anicteric sclerae ENMT external ear and nose normal, oropharynx normal Neck normal visual inspection Respiratory normal respiratory effort, lungs clear to auscultation Cardiovascular Heart Sounds: no murmur Extremities: no edema Gastrointestinal (Abdomen) normal bowel sounds, soft, nontender, no hepatosplenomegaly Musculoskeletal no cyanosis or clubbing, extremities motor strength 5/5 Skin no rashes, warm and dry Psychiatric A+Ox3, euthymic affect Discharge Data Consultations 02/10/21 17:23 ED Decision to Admit Stat Hospital Course (1) Abnormal LFTs: 70 yo M no significant PMHx [facility] for suspected Tick-borne illness with elevated LFTs, thrombocytopenia, and MARIANA. Tick-borne illness (Thrombocytopenia, elevated LFTs): Presents with elevated LFTs, thrombocytopenia. Lyme IgM positive (bands pending), Anaplasma smear preliminary negative with DNA pending. - Ehrlichia IgM and IgG, Babesia IgM and IgG ordered. - Clinical picture suspicious for anaplasmosis - Doxycycline 100 mg BID begun 02/10 for a total of 14 day course - Outpatient CBC 02/16 MARIANA: - Creatinine 2.06 on admission; 1.79 on day of discharge (02/12) - No baseline to compare. Patient does not endorse history of kidney dysfunction. - Likely form poor PO intake, improving with hydration - Outpatient CMP 02/16 Hypokalemia - hypokalemia to 3.2 on day of admission, 3.3 on day of discharge (02/12) - likely from poor intake, improving with better intake - Outpatient CMP as above Elevated bilirubin - Total 2.9 on admission, improved to 1.3 on day of discharge - CMP as above HTN: - Noted in ER to have BP 150-170s/70-90s. - Follow-up in outpatient setting Alcohol use: - Consumes 2-3 beers nightly, however has not had any alcohol in over week, low likelihood of withdrawal symptoms. 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, acute kidney injury, electrolyte derangements, and chronic alcohol abuse Condition on Discharge: Good Activity: Resume your previous activity Non-emergency contact: Primary Care Provider Call non-emergency contact if: you have any medication questions, your symptoms worsen and your rectal temperature is above 100.4 Follow-up/Referrals: PCP,NO [Primary Care Provider] - Diet: Regular Ambulatory Orders: Complete Blood Count with Diff (Routine) Timeframe: 3 Days Location: Determined by Patient Ordered By: Kaushik Cadena Comprehensive Metabolic Panel (Routine) Timeframe: 3 Days Location: Determined by Patient Ordered By: Kaushik Patricia Attending Provider Instructions: Care instructions: You were admitted to [facility] for treatment of tickborne illness likely anaplasmosis with Lyme disease. While hospitalized you were provided with antibiotics, IV hydration, and your electrolytes were monitored. Your electrolytes stabilize, and the symptoms which you presented began to improve. He will be discharged on a 12-day course of doxycycline. Please take 1 dose in the a.m. and 1 dose in the p.m. for 2 doses per day. Please avoid extended periods in direct sunlight while on this medication, some individuals find his medication causes upset stomach, this is alleviated by taking the medication with food. Other individuals find a benefit from consuming yogurt or probiotics. Additionally to confirm that your biochemical markers continue to improve we request that you obtain outpatient CBC and CMP on 02/16. A prescription for these labs have been provided. -Doxycycline 100 mg 1 pill in the a.m. 1 pill in the p.m. for 12 days This medication has been called into the [facility] in [place] A discharge summary will be sent to your primary care physician to ensure continuity of care. Please bring this discharge summary with you to your next office appointment so that your provider can review it at that time. Follow-up appointments: - Keep all your follow-up appointments as already scheduled. If you cannot make an appointment, notify your provider. - Please call to request a follow-up appointment with your primary care sydniei darian within one week of discharge. Please let us know if you are unable to obtain an appointment Follow-up labs: - Please go to a lab nearest you and obtain the requested lab work. Please have this completed at least 3 hours before your doctor's appointment (or the day before your appointment if possible). Medications: - Your medication list has been reviewed and reconciled upon discharge to ensure accuracy and continuity of care. - You are provided with a list of all your current medications at this time. Please review this list closely and make note of any changes. - Please take all of your medications exactly as prescribed. - Tell your primary care provider if you cannot afford your medications. - Call your primary care provider if you are having any side effects or any other problems. - Call your primary care provider before taking any over the counter medications or supplements, including herbals and vitamins, because some of these may interact with your current medications and/or make your symptoms worse. Symptoms: Please call your primary care provider for symptoms including, but not limited to: fevers (temperatures greater than 100.4), chills, intractable nausea or vomiting, diarrhea, rash, shortness of breath, bleeding, pain, or if you experience any worsening of the symptoms that brought you to the hospital. For EMERGENCY and VERY SERIOUS health-related issues, such as chest pain, shortness of breath, or sudden onset of the symptoms that brought you to the hospital, you may need to call 911 or go directly to the Emergency Room It has been our privilege to take care of you during your hospital stay. And Above All Else Feel Better! Best Wishes, Kaushik Cadena MD PGY2 Resident, Family & Community Medicine [facility] at [facility] [address], [address] : [address] [place] [address], [place] [address] Pending Studies at Discharge: Yes Studies:: Tick Labs Stand-Alone Forms: My [facility] [employer], Smoking Cessation Medications and DC Order Prescriptions: New doxycycline hyclate 100 mg capsule 100 mg PO BID 12 Days Qty: 24 RF: 0 Continued Multivitamin 50 Plus Tablet 1 tab PO QAM RF: 0 sodium chloride 0.65 % Aerosol,[place] 1 spray INTRANASAL HS RF: 0 Discharge Orders: Discharge Order (Routine); Ordered 02/12/21 Ordered By: Kaushik Cadena Admission Data Admit Date/Time: 02/10/21 20:08 Attending Provider: Jamil Huynh Admit Provider: Christianne Cadena Primary Care Provider: PCP,NO Other Providers: Javier Red ; Rashida Carnes ; [facility] Other Interventions: Discharge Summary Assessment (RN) Last Done: 02/12/21 15:47 Supervising Attestation I personally examined the patient and verified all cao points of history and exam, discussed case, and agree with decision making with Juana Shaikh MS4 feeling better and would like to go home vitals noted nad heent nc at mmm breathing unlabored no accessory muscles good effort skin no rashes no pallor or icterus tick borne illness - presumably anaplasmosis given high prevalence and clinical picture/pattern - improving. continue empiric doxy - finish out course of therapy. stable for home ARF (presumed - baseline creatinine unknown) - Cr improving --> safe for home. PO fluids, f/u creatinine as outpt. labs next week. stable for home, CBC, CMP tuesday otherwise as above Discharge Exam GENERAL: nad HEENT: conjunctiva without injection b/l, oropharynx moist CHEST: cta bilaterally with no wheezes, rhonchi or rales, normal respiratory effort CARDIOVASCULAR: heart regular rate and rhythm, no murmurs, gallops or rubs, no lower extremity edema ABD:nontender to palpation, nondistended, normal active bowel sounds SKIN: no rashes or suspicious lesions noted NEURO: PERRLA, EOMI
[2021-02-12] MEDS: POTASSIUM CHLORIDE CRTAB 20 MEQ TABCR PO SCH ×2 (13:04→16:16)
--- NOTE | 2021-02-12 17:51 | Billing Data ---
Date of Service February 12, 2021 Coding Level of Care Code D/C Day Management <30 mins
--- NOTE | 2021-02-13 05:49 | Electrocardiogram Report ---
Test Reason : Blood Pressure : / mmHG Vent. Rate : 078 BPM Atrial Rate : 078 BPM P-R Int : 160 ms QRS Dur : 116 ms QT Int : 414 ms P-R-T Axes : 013 -23 039 degrees QTc Int : 471 ms Normal sinus rhythm Incomplete right bundle branch block Borderline ECG When compared with ECG of 11-FEB-2021 05:51, No significant change was found Confirmed by Edison Gutierrez ([id number]) on 02/13/2021 5:48:24 AM Referred By: REFERRED SELF Confirmed By:Edison Gutierrez
[2021-02-16 03:51] LABS: Babesia microti IgG <1:64 titer (<1:64); Ehrlichia chaff IgG Ab <1:64 (<1:64); Ehrlichia chaff IgM Ab <1:20 (<1:20)
[2021-02-16 17:31] LABS: 18KDIGG Band NON-REACTIVE; 23KDIGG Band NON-REACTIVE; 23KDIGM Band NON-REACTIVE; 28KDIGG Band NON-REACTIVE; 30KDIGG Band NON-REACTIVE; 39KDIGG Band NON-REACTIVE; 39KDIGM Band NON-REACTIVE; 41KDIGG Band NON-REACTIVE; 41KDIGM Band NON-REACTIVE; 45KDIGG Band NON-REACTIVE; 58KDIGG Band NON-REACTIVE; 66KDIGG Band NON-REACTIVE; 93KDIGG Band NON-REACTIVE; Lyme Antibodies, WB IgG NEGATIVE (NEGATIVE); Lyme Antibodies, WB IgM NEGATIVE (NEGATIVE)
== END 2021-02-12 17:06 | disposition home or self-care (01) | DRG 868 ==
LOC: ED 11:53 → SUATTDRO 20:08 → 2N 20:08